=== PATIENT | female | born 1990 | race Caucasian/White ===

== ENCOUNTER 2022-11-15 20:14 | Emergency (ER) | payer OTHER ==
[2022-11-15 21:07] VITALS: O2SAT 98
[2022-11-15 21:44] LABS: INFLUENZA A NEGATIVE (NEGATIVE); INFLUENZA B NEGATIVE (NEGATIVE); RESPIRATORY SYNCTIAL VIRUS NEGATIVE (Negative); SARS-CoV-2 Xpert Express NEGATIVE (NEGATIVE)
--- NOTE | 2022-11-15 21:47 | ERPHSYRPT ---
- History of Present Illness Time Seen by Provider: 11/15/22 20:18 Source: patient Exam Limitations: no limitations Patient Subjective Stated Complaint: vomtiing x3, fever, sore throat and cough Triage Nursing Assessment: pt ambulated into ER without diff. Pt c/o fever, sore throat, cough since last night. Pt has vomited x3 today. Pt states, "my throat is very sore and hurts to swallow". Pt denies any abd pain or chest pain. Abd soft with active bs x4 quad, nontender. LBM was last night. Pt able to drink and keep those fluids down at this time. Physician History: 32-year-old female presented in the ER with chief complaint of flulike symptoms since yesterday. Patient reports sore throat congestion, mild nonproductive cough and fever chills with a T-max of 102. Patient also reports having 3 episodes of nonprojectile, nonbilious vomiting earlier today and last episode was more than 3 hours ago. No abdominal pain or diarrhea reported. Positive sick contact with other people having similar symptoms at work. Timing/Duration: yesterday, gradual onset, worse Cough Quality/Degree: mild, dry cough Associated Symptoms: fever, chills, chest pain/soreness, cough, earache, headache, muscle aches, nasal congestion, sinus infection, sore throat Allergies/Adverse Reactions: No Known Drug Allergies Allergy (Verified 11/15/22 20:46) Home Medications: buprenorphine HCL [Buprenorphine HCl] 8 mg PO BID 11/15/22 [History] Hx Tetanus, Diphtheria Vaccination/Date Given: Yes Hx Influenza Vaccination/Date Given: No Hx Pneumococcal Vaccination/Date Given: No Immunizations Up to Date: Yes Travel Risk - International Travel Have you traveled outside of the country in past 3 weeks: No - Coronavirus Screening Are you exhibiting any of the following symptoms?: Yes Symptoms: Fever, Cough: New Onset, Vomiting/Diarrhea Close contact with a COVID-19 positive Pt in past 14-21 Days: No - Vaccine Status Have you recieved a Covid-19 vaccination: No - Review of Systems Constitutional: Fever, Chills, Fatigue Eyes: No Symptoms Ears, Nose, & Throat: Nose Congestion, Throat Pain, Throat Swelling Respiratory: Cough Cardiac: No Symptoms Abdominal/Gastrointestinal: Nausea, Vomiting, No Abdominal Pain Genitourinary Symptoms: No Symptoms Musculoskeletal: Myalgias Skin: No Symptoms Neurological: Headache Psychological: No Symptoms Endocrine: No Symptoms - Past Medical History Pertinent Past Medical History: Yes Neurological History: No Pertinent History ENT History: No Pertinent History Cardiac History: No Pertinent History Respiratory History: Bronchitis Endocrine Medical History: No Pertinent History Musculoskeletal History: Fractures GI Medical History: No Pertinent History History: No Pertinent History Psycho-Social History: No Pertinent History Female Reproductive Disorders: No Pertinent History Other Medical History: dislocated lt elbow - Past Surgical History Past Surgical History: Yes Musculoskeletal: Orthopedic Surgery Female Surgical History: Section - Social History Smoking Status: Current every day smoker How long have you smoked: 15 yrs Exposure to second hand smoke: Yes Drug Use: none Patient Lives Alone: No - Female History Hx Last Menstrual Period: 2 weeks Hx Now: No - Nursing Vital Signs Nursing Vital Signs: Initial Vital Signs Temperature 98.3 F 11/15/22 20:37 Pulse Rate 72 11/15/22 20:37 Respiratory Rate 16 11/15/22 20:37 Blood Pressure 125/79 11/15/22 20:37 O2 Sat by Pulse Oximetry 99 11/15/22 20:37 Pain Scale Pain Intensity 6 - Physical Exam General Appearance: no apparent distress, alert Eye Exam: PERRL/EOMI Ears, Nose, Throat Exam: pharyngeal erythema Neck Exam: normal inspection, full range of motion Respiratory Exam: normal breath sounds, lungs clear Cardiovascular Exam: regular rate/rhythm, normal heart sounds Gastrointestinal/Abdomen Exam: soft, normal bowel sounds, No tenderness, No distention, No guarding Back Exam: normal inspection Extremity Exam: normal inspection, normal range of motion Neurologic Exam: alert, oriented x 3, lab[employer] II-XII nml as tested Skin Exam: normal color SpO2 Interpretation: normal SpO2: 98 O2 Delivery: Room Air Lab/Rad Data: Laboratory Results 11/15/22 11/15/22 Range/Units 21:05 21:05 Influenza Type A Ag NEGATIVE (NEGATIVE) Influenza Type B Ag NEGATIVE (NEGATIVE) RSV (PCR) NEGATIVE (Negative) SARS-CoV-2 (PCR) NEGATIVE (NEGATIVE) Group A Strep Antibody NOT DETECTED (NEGATIVE) - Progress Progress: unchanged Air Movement: good Progress Note: 11/15/22 22:00 32-year-old is evaluated for flulike symptoms. Patient is not in any distress. She is afebrile. Lungs bilateral clear to auscultation. She has a negative flu RSV COVID and strep. Offered further work-up and patient does not want anything done. Recommended outpatient follow-up. Discussed signs symptoms of worsening needing return to ER which she seems understanding. Stable for discharge. Blood Culture(s) Obtained: No Antibiotics given: No Counseled pt/family regarding: lab results, diagnosis, need for follow-up - Departure Departure Disposition: Home Clinical Impression: Viral syndrome Condition: Stable Critical Care Time: No Referrals: DOCTOR,NO FAMILY [Primary Care Provider] - Follow up/PCP as directed MILAN SANCHEZ DO [ACTIVE STAFF] - Follow Up with PCP/3 days Instructions: Fever, Adult (DC), Viral Syndrome (DC) Additional Instructions: Take Tylenol/ibuprofen as needed for aches and pains/fever control. Follow-up with primary care for reevaluation. Return to ER for persistent high-grade fever chills, difficulty breathing, worsening cough, intractable nausea vomiting etc.
[2022-11-15 22:04] VITALS: BP 107/82; PULSE 60
== END 2022-11-15 22:09 | disposition home or self-care (01) ==
LOC: ED 20:14
DX: B34.9 Viral infection, unspecified (principal); J02.9 Acute pharyngitis, unspecified; R09.81 Nasal congestion; R05.1 Acute cough; R50.9 Fever, unspecified; R11.10 Vomiting, unspecified; Z79.891 Long term (current) use of opiate analgesic; Z28.310 Unvaccinated for COVID-19; Z72.0 Tobacco use
CPT/HCPCS: 0241U; 87651; 99282

== ENCOUNTER 2023-04-14 18:02 | Emergency (ER) | payer OTHER ==
[2023-04-14 18:35] VITALS: O2SAT 95
[2023-04-14] MEDS ORDERED: TYLENOL 325 MG PO ONE (18:41)
--- NOTE | 2023-04-14 18:41 | ERPHSYRPT ---
- History of Present Illness Time Seen by Provider: 04/14/23 18:39 Source: patient Exam Limitations: no limitations Patient Subjective Stated Complaint: pt states I began to have burning when urinating. I think I have a UTI and went and bought AZO. Triage Nursing Assessment: pt ambulated into the er; pt is axo x4; c/o flank pain; pt urine is orange in color, clear; tenderness to left flank pain; c/o polyuria, dysuria; abd round, soft; skin PDW; no respiratory distress; vitals wnl Physician History: Patient is a 33-year-old female presents to our ED for antibiotics. Patient believes she has a urinary tract infection. Patient states her symptoms started 2 days ago. Pain is gotten progressively worse. Pain in the suprapubic region. Patient admits to urinary frequency and urgency. Mild left upper back pain. Patient denies a history of UTI. Patient declined a CT abdomen pelvis to assess for kidney stones. Patient states "I just want antibiotics ". No trauma. No fever. No nausea vomiting or diaphoresis. Patient otherwise feels well. Patient's symptoms occurred over a period of 2 days and gradually worsening. Patient voices no other complaints at this time. Portions of this note were created with voice recognition technology. There may be grammatical, spelling, punctuation or sound alike errors Timing/Duration: day(s) (2 days), worse Modifying Factors: Improves With: nothing Associated Symptoms: denies symptoms Allergies/Adverse Reactions: No Known Drug Allergies Allergy (Verified 11/15/22 20:46) Home Medications: buprenorphine HCL [Buprenorphine HCl] 8 mg PO BID 11/15/22 [History] Hx Tetanus, Diphtheria Vaccination/Date Given: Yes Hx Influenza Vaccination/Date Given: No Hx Pneumococcal Vaccination/Date Given: No Travel Risk - International Travel Have you traveled outside of the country in past 3 weeks: No - Coronavirus Screening Are you exhibiting any of the following symptoms?: No Close contact with a COVID-19 positive Pt in past 14-21 Days: No - Vaccine Status Have you recieved a Covid-19 vaccination: No - Review of Systems Constitutional: No Symptoms, No Fever, No Chills Eyes: No Symptoms Ears, Nose, & Throat: No Symptoms Respiratory: No Symptoms, No Cough, No Dyspnea Cardiac: No Symptoms, No Chest Pain, No Edema, No Syncope Abdominal/Gastrointestinal: No Symptoms, No Abdominal Pain, No Nausea, No Vomiting, No Diarrhea Genitourinary Symptoms: No Symptoms, No Dysuria Musculoskeletal: No Symptoms, No Back Pain, No Neck Pain Skin: No Symptoms, No Rash Neurological: No Symptoms, No Dizziness, No Focal Weakness, No Sensory Changes Psychological: No Symptoms Endocrine: No Symptoms Hematologic/Lymphatic: No Symptoms Immunological/Allergic: No Symptoms All Other Systems: Reviewed and Negative - Past Medical History Pertinent Past Medical History: Yes Neurological History: No Pertinent History ENT History: No Pertinent History Cardiac History: No Pertinent History Respiratory History: Bronchitis Endocrine Medical History: No Pertinent History Musculoskeletal History: Fractures GI Medical History: No Pertinent History History: No Pertinent History Psycho-Social History: Depression Female Reproductive Disorders: No Pertinent History Other Medical History: dislocated lt elbow - Past Surgical History Past Surgical History: Yes Musculoskeletal: Orthopedic Surgery Female Surgical History: Section, Tubal Ligation - Social History Smoking Status: Current every day smoker How long have you smoked: 15 yrs Exposure to second hand smoke: Yes Drug Use: none Patient Lives Alone: No - Female History Hx Now: No - Nursing Vital Signs Nursing Vital Signs: Initial Vital Signs Temperature 99.1 F 04/14/23 18:14 Pulse Rate 73 04/14/23 18:14 Respiratory Rate 18 04/14/23 18:14 Blood Pressure 114/61 04/14/23 18:14 O2 Sat by Pulse Oximetry 97 04/14/23 18:14 Pain Scale Pain Intensity 2 - Physical Exam General Appearance: no apparent distress, alert Eye Exam: PERRL/EOMI, eyes nml inspection Ears, Nose, Throat Exam: normal ENT inspection, TMs normal, pharynx normal, moist mucous membranes Neck Exam: normal inspection, non-tender, supple, full range of motion Respiratory Exam: normal breath sounds, lungs clear, airway intact, No respiratory distress Cardiovascular Exam: regular rate/rhythm, normal heart sounds, normal peripheral pulses Gastrointestinal/Abdomen Exam: soft, normal bowel sounds, No tenderness, No mass Back Exam: normal inspection, normal range of motion, No CVA tenderness, No vertebral tenderness Extremity Exam: normal inspection, normal range of motion, pelvis stable Neurologic Exam: alert, oriented x 3, cooperative, normal mood/affect, nml cerebellar function, nml station & gait, sensation nml, No motor deficits Skin Exam: normal color, warm, dry, No rash Lymphatic Exam: No adenopathy SpO2 Interpretation: normal SpO2: 95 O2 Delivery: Room Air - Course Nursing assessment & vital signs reviewed: Yes Ordered Tests: Active Orders 24 hr Category Date Time Status CULTURE,URINE Stat Lab 04/14/23 18:30 Received UA W/RFX UR CULTURE Stat Lab 04/14/23 18:30 Completed Medication Summary Discontinued Medications Generic Name Dose Route Start Last Admin Trade Name Filomena PRN Reason Stop Dose Admin Acetaminophen 975 mg 04/14/23 18:41 04/14/23 18:44 Acetaminophen 325 Mg Tablet PO 04/14/23 18:42 975 mg STAT ONE Administration Acetaminophen Confirm 04/14/23 18:44 Acetaminophen 325 Mg Tablet Administered 04/14/23 18:45 Dose 975 mg .ROUTE .STK-MED ONE Nitrofurantoin Macrocrystals 100 mg 04/14/23 19:02 Nitrofurantoin Macro 100 Mg Capsule PO 04/14/23 19:03 STAT ONE Lab/Rad Data: Laboratory Results 04/14/23 Range/Units 18:30 Urine Color [place] A (Yellow) Urine Appearance Clear (Clear) Urine pH 6.0 (4.6-8.0) Ur Specific [place] 1.015 (1.005-1.030) Urine Protein 30 (Negative) Urine Glucose (UA) Negative (Negative) mg/dL Urine Ketones Negative (Negative) Urine Blood Negative (Negative) Urine Nitrite Positive A (Negative) Urine Bilirubin Small A (Negative) Urine Urobilinogen 1.0 A (0.2) mg/dL Ur Leukocyte Esterase Moderate A (Negative) U Hyaline Cast (Auto) NONE SEEN (0-2) /LPF Urine Microscopic RBC 21-50 A (0-5) /HPF Urine Microscopic WBC 3-5 (0-5) /HPF Ur Epithelial Cells Rare (None Seen) /HPF Urine Bacteria None Seen (None Seen) /HPF Urine Culture Reflexed YES (NO) - Progress Progress: improved Progress Note: 33-year-old female presents to our ED with urinary symptomology. Urinalysis reveals a urinary tract infection. Patient declined CT abdomen pelvis to rule out ureterolithiasis. However given history it sounds as though kidney stone is low on the differential. Nonetheless patient declined further work-up. Patient received a dose of Macrobid in our ED. PATIENT ALSO RECEIVED A DOSE OF ACETAMINOPHEN FOR PAIN CONTROL. A prescription for the same was forwarded to patient's pharmacy. Patient agrees to follow-up with her primary care doctor within 48 hours for reevaluation. Portions of this note were created with voice recognition technology. There may be grammatical, spelling, punctuation or sound alike errors Complexity of problem addressed is low, acute uncomplicated. Complex of data reviewed and analyzed is moderate. Test ordered. Test independently reviewed and analyzed by Dr. Hennessy. UTI observed on today's urinalysis. Risk of complication and or risk morbidity/mortality of patient management is moderate. Patient received a dose of Macrobid in our ED. A prescription for the same was forwarded to patient's pharmacy. We will discharge home. Patient agrees to follow-up with her primary care doctor within 48 hours for reevaluation. Portions of this note were created with voice recognition technology. There may be grammatical, spelling, punctuation or sound alike errors 04/14/23 19:05 04/14/23 19:08 Counseled pt/family regarding: lab results, diagnosis, rad results - Departure Departure Disposition: Home Clinical Impression: Urinary tract infection Condition: Stable Critical Care Time: No Referrals: DOCTOR,NO FAMILY [Primary Care Provider] - Follow up/PCP as directed JUAN LUIS GILLESPIE MD [ACTIVE STAFF] - Follow up/PCP as directed Additional Instructions: Discharge/Care Plan BRAEDENRADHA was seen on 04/14/23 in the Emergency Room. The patient was counseled regarding Diagnosis,Lab results, Imaging studies, need for follow up and when to return to the Emergency Room. Prescriptions given: Discharge Note I have spoken with the patient and/or caregivers. I have explained the patient's condition, diagnosis and treatment plan based on the information available to me at this time. I have answered the patient's and/or caregiver's questions and addressed any concerns. The patient and/or caregivers have as good understanding of the patient's diagnosis, condition and treatment plan as can be expected at this point. The vital signs have been stable. The patient's condition is stable and appropriate for discharge from the emergency department. The patient will pursue further outpatient evaluation with the primary care physician or other designated or consulting physician as outlined in the discharge instructions. The patient and/or caregivers are agreeable to this plan of care and follow-up instructions have been explained in detail. The patient and/or caregivers have received these instruction. The patient/and or caregivers are aware that any significant change in condition or worsening of symptoms should prompt an immediate return to this or the closest emergency department or call 911. Prescriptions: Nitrofurantoin Macro 100 mg [Macrobid 100MG Capsule] 100 mg PO BID 7 Days #14 cap
[2023-04-14] MEDS ORDERED: TYLENOL 325 MG ONE (18:44)
[2023-04-14 18:49] LABS: ADD URINE CULTURE? YES (NO); Appearance Clear (Clear); Bacteria None Seen /HPF (None Seen); Bilirubin Small (Negative); Blood Negative (Negative); Epithelial Cells Rare /HPF (None Seen); Glucose, Urine Negative (Negative); Hyaline Casts NONE SEEN /LPF (0-2); Ketones Negative (Negative); Leukocyte Esterase Moderate (Negative); Nitrite Positive (Negative); Protein,Urine Dip 30 (Negative); RBC 21-50 /HPF (0-5); Specific Gravity 1.015 (1.005-1.030)
[2023-04-14] MEDS ORDERED: Macrobid 100MG Capsule PO ONE (19:02)
[2023-04-14] MEDS ORDERED: Macrobid 100MG Capsule ONE (19:09)
[2023-04-14 19:16] VITALS: BP 103/61; PULSE 76
== END 2023-04-14 19:17 | disposition home or self-care (01) ==
LOC: ED 18:02
DX: N39.0 Urinary tract infection, site not specified (principal); R10.2 Pelvic and perineal pain; R35.0 Frequency of micturition; Z79.891 Long term (current) use of opiate analgesic; Z28.310 Unvaccinated for COVID-19; Z72.0 Tobacco use
CPT/HCPCS: 81001; 87077; 87086; 87186; 99283; A9270-GY